=== PATIENT | male | born 1970 | race Caucasian/White ===

== ENCOUNTER 2022-01-02 07:04 | Emergency (ER) | payer BC ==
[~2022-01-02] VITALS: Ht 185.4 cm; Wt 109.1 kg
[2022-01-02 07:11] VITALS: TEMP 98.3
[2022-01-02] MEDS ORDERED: CLEOCIN HCL300 MG PO (07:17)
[2022-01-02 08:20] LABS: BASO % 0.6 % (0.0-2.0); EOS # 0.3 K/mm3 (0.0-0.7); EOS % 4.6 % (0.0-4.0); GRAN # 4.1 K/mm3 (1.4-6.5); GRAN % 62.3 % (42.2-75.2); HEMATOCRIT 38.9 % (42.0-52.0); HEMOGLOBIN 12.6 g/dl (13.5-18.0); LYMPH # 1.4 K/mm3 (1.2-3.4); LYMPH % 21.4 % (20.0-51.0); MEAN CELL VOLUME 87 fl (80.0-100.0); MEAN CORPUSCULAR HEMOGLOBIN 28 pg (27-31); MEAN CORPUSCULAR HGB CONC 32 g/dl (33.0-37.0); MEAN PLATELET VOLUME 9.8 fl (7.4-10.4); MONO # 0.7 K/mm3 (0.1-0.6); MONO % 10.8 % (1.7-9.3); PLATELET COUNT 222 K/mm3 (130-400); RED BLOOD COUNT 4.47 M/mm3 (4.20-5.60); REDCELL DISTRIBUTION WIDTH-CV 12.9 % (11.5-14.5)
[2022-01-02 08:39] LABS: ALBUMIN 3.9 gm/dL (3.5-5.0); BILIRUBIN,TOTAL 0.4 mg/dL (0.2-1.2); CREATININE, serum 0.99 mg/dL (0.72-1.25); POTASSIUM 4.3 mmol/L (3.5-4.5); TOTAL PROTEIN 6.9 gm/dL (6.2-8.1)
[2022-01-02] MEDS ORDERED: CLEOCIN HC150 MG/CAP PO (10:16)
[2022-01-02 10:40] VITALS: BP 135/91; PULSE 75
== END 2022-01-02 10:40 | disposition home or self-care (01) ==
LOC: COL.ER 07:04
PROVIDERS: Student in an Organized Health Care Education/Training Program
DX: K11.20 Sialoadenitis, unspecified (principal); F17.210 Nicotine dependence, cigarettes, uncomplicated; Z88.2 Allergy status to sulfonamides; Z79.2 Long term (current) use of antibiotics
CPT/HCPCS: Q9967

== ENCOUNTER 2024-01-14 23:25 | Emergency (ER) | payer BC ==
[~2024-01-14] VITALS: Ht 185.4 cm; Wt 102.3 kg
[~2024-01-14 23:25] MED LIST: CLEOCIN HC150 MG/CAP PO; CLEOCIN HCL300 MG PO
[2024-01-14 23:36] VITALS: TEMP 97.9
[2024-01-14] MEDS ORDERED: Cyclobenzaprine 10 MG TAB PO ONE (23:45)
[2024-01-14] MEDS ORDERED: Ketorolac 30 MG/ML VIAL IM ONE (23:45)
[2024-01-15] MEDS ORDERED: MOBIC 7.5MG7.5 MG PO (01:03)
[2024-01-15] MEDS ORDERED: FLEXERIL 1010 MG/TAB PO (01:03)
[2024-01-15] MEDS ORDERED: Home Cyclobenzaprine 10 MG #2 TABS/PACK PO ONE (01:15)
[2024-01-15] MEDS ORDERED: traMADol 50 MG TAB PO ONE (01:15)
[2024-01-15 01:55] VITALS: BP 131/76; PULSE 78
== END 2024-01-15 01:55 | disposition home or self-care (01) ==
LOC: COL.ER 23:25
DX: M54.42 Lumbago with sciatica, left side (principal); M25.552 Pain in left hip; F17.210 Nicotine dependence, cigarettes, uncomplicated
CPT/HCPCS: J1885